=== PATIENT | female | born 1985 | race Caucasian/White ===

== ENCOUNTER 2016-06-10 01:27 | Emergency (ER) | payer OTHER ==
[~2016-06-10] VITALS: Ht 172.7 cm; Wt 57.3 kg
[~2016-06-10 01:27] MED LIST: B-COTAB18 PO; BCPILLS PO; CALCTAB65 PO; GLUCTAB18 PO; PREN1TAB29 PO
[2016-06-10 01:30] VITALS: TEMP 36.9; Ht 172.7 cm; Wt 57.3 kg
[2016-06-10] MEDS ORDERED: METHYLPREDNISOLONE 125 MG VIAL IV STA (01:48)
[2016-06-10] MEDS ORDERED: ACETAMINOPHEN 500 MG TAB PO STA (01:48)
[2016-06-10] MEDS ORDERED: ALBUT/IPRATROP 3MG/0.5MG NEB 3 ML VIAL INH ONE (02:00)
[2016-06-10] MEDS ORDERED: SODIUM CHLORIDE 0.9% 1000ML 1,000 ML IV ONE (02:00)
[2016-06-10 02:22] LABS: BASO % 0.9 %; BASO ABS # 0.04 K/uL (0-0.2); COMPLETE YES; EOS % 1.4 %; HEMATOCRIT 42.8 % (37-47); LYMPH % 32.2 %; LYMPH ABS # 1.36 K/uL (1.2-3.4); MEAN CELL VOLUME 89.9 fL (80-100); MEAN CORPUSCULAR HEMOGLOBIN 30.7 pg (25-34); MEAN CORPUSCULAR HGB CONC 34.1 g/dl (32-36); MEAN PLATELET VOLUME 10.9 fL (7.4-10.4); MONO % 18.2 %; NEUT % 47.3 %; PLATELET COUNT 184 K/uL (130-400); RED BLOOD COUNT 4.76 M/uL (4.2-5.4); WHITE BLOOD COUNT 4.23 K/uL (4.8-10.8)
[2016-06-10 02:27] LABS: URINE APPEARANCE CLEAR (CLEAR); URINE BILIRUBIN NEG (NEG); URINE COLOR YELLOW; URINE NITRITE NEG (NEG); URINE SPECIFIC GRAVITY 1.018 (1.000-1.030); UROBILINOGEN NEG (NEG); ZZUR CULT IF INDIC CLEAN CATCH NO
[2016-06-10 02:34] LABS: MANUAL MICROSCOPIC REQUIRED? NO; REVIEW REQ? NO
[2016-06-10 02:36] LABS: POINT OF CARE TROPONIN I 0.01 ng/ml (0-0.045)
[2016-06-10 02:44] LABS: BUN/CREATININE RATIO 12.8 (10-20); CALCIUM 8.3 mg/dl (8.5-10.1); CREATININE 0.8 mg/dl (0.60-1.20); POTASSIUM 3.5 mmol/L (3.5-5.1)
[2016-06-10 02:46] LABS: ALB/GLOB RATIO 1.3 (0.9-2)
[2016-06-10] MEDS ORDERED: NORE1TAB PO (02:46)
[2016-06-10] MEDS ORDERED: PRED20TA2 PO (03:29)
[2016-06-10] MEDS ORDERED: LEVO-366 PO (03:29)
[2016-06-10] MEDS ORDERED: LEVOFLOXACIN 250 MG TAB PO ONE (03:30)
[2016-06-10] MEDS ORDERED: ALBUTEROL HFA 8 GM INHALER INH ONE (03:30)
[2016-06-10 03:48] VITALS: BP 102/70; PULSE 74; O2SAT 99
--- NOTE | 2016-06-10 08:05 | DIAGNOSTIC IMAGING REPORT ---
CHEST 2 VIEWS ROUTINE CLINICAL HISTORY: Cough, fever, shortness of breath. COMPARISON STUDY: August 2009 FINDINGS: The patient appears hyperinflated. There is no focal pulmonary consolidation. There are no pleural effusions. There is no failure.[ IMPRESSION: Hyperinflation. No evidence of focal pulmonary consolidation. Electronically signed by: Devendra Zamora M.D. 06/10/2016 8:04 AM Dictated Date/Time: 06/10/2016 8:03 AM
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
[2016-12-07] MEDS ORDERED: MULT1CAP6 PO (02:47)
== END 2016-06-10 03:48 | disposition home or self-care (01) ==
LOC: C.EDB 01:28
DX: R06.02 Shortness of breath (principal); R50.9 Fever, unspecified; J45.909 Unspecified asthma, uncomplicated; Z82.49 Family history of ischemic heart disease and other diseases of the circulatory system

== ENCOUNTER → 2016-07-28 | Outpatient (CLI) | payer OTHER ==
[~2016-07-28] MED LIST changes: -B-COTAB18 PO; -BCPILLS PO; -CALCTAB65 PO; -GLUCTAB18 PO; +LINA1CAP PO; +MULT1CAP6 PO; +NORE1TAB PO; -PREN1TAB29 PO; +[UNRECOGNIZED DRUG - OTHER] PO
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
== END | disposition home or self-care (01) ==
LOC: C.ULTRBC 09:53
PROVIDERS: ATTEND Internal Medicine
DX: R11.0 Nausea (principal); R10.11 Right upper quadrant pain

== ENCOUNTER 2016-12-07 15:23 | Emergency (ER) | payer OTHER ==
[~2016-12-07] VITALS: Ht 167.6 cm; Wt 53.6 kg
[~2016-12-07 15:23] MED LIST changes: -LINA1CAP PO; -[UNRECOGNIZED DRUG - OTHER] PO
[2016-12-07 15:30] VITALS: BP 109/65; PULSE 66; TEMP 36.8; O2SAT 98; Ht 167.6 cm; Wt 53.6 kg
[2016-12-07] MEDS ORDERED: [UNRECOGNIZED DRUG - OTHER] PO (15:46)
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
[2016-12-07] MEDS ORDERED: LINA1CAP PO (21:33)
== END 2016-12-07 16:07 | disposition home or self-care (01) ==
LOC: C.EDB 15:25 → C.EDD 16:07
DX: Z77.21 Contact with and (suspected) exposure to potentially hazardous body fluids (principal); J45.909 Unspecified asthma, uncomplicated; Z87.440 Personal history of urinary (tract) infections; Z87.442 Personal history of urinary calculi